=== PATIENT | male | born 1985 | race Caucasian/White ===

== ENCOUNTER 2024-08-19 10:20 | Emergency (ER) | payer BC, OTHER ==
[~2024-08-19] VITALS: Ht 190.5 cm; Wt 100.7 kg
[2024-08-19] MEDS ORDERED: TETRAcaine 5 ML BOTTLE ONE (11:04)
[2024-08-19] MEDS: TETRACAINE HCL 0.5% OPHTALMIC 15 ML BOTTLE OP ONE (11:05)
[2024-08-19 11:52] VITALS: BP 137/82; TEMP 98.4; O2SAT 98
== END 2024-08-19 11:53 | disposition home or self-care (01) ==
LOC: ER 10:24
DX: H53.8 Other visual disturbances (principal); F12.90 Cannabis use, unspecified, uncomplicated; Z90.49 Acquired absence of other specified parts of digestive tract; Z98.890 Other specified postprocedural states